=== PATIENT | male | born 1980 | race Caucasian/White ===

== ENCOUNTER → 2021-12-09 16:44 | Outpatient (CLI) | payer OTHER, SELFPAY ==
--- NOTE | 2021-12-09 16:48 | DI.MRI.S_ITS ---
PROCEDURE: MR ABDOMEN WO/W CON INDICATIONS: RIGHT UPPER QUADRANT PAIN TECHNIQUE: Coronal HASTE, axial 2D FLASH in- and [id number]; axial breath-hold T2 FSE. Dynamic axial VIBE during the administration of contrast; post-contrast coronal VIBE or 2D FLASH with fat saturation from the hepatic dome to the iliac crests. Optional diffusion weighted imaging and ADC may be performed. COMPARISON: None. FINDINGS: Image quality: Degraded by motion Lung bases: No basal effusion. Lungs are not well evaluated on MRI. No hiatal hernia. Solid organs: The liver is unremarkable. Gallbladder is unremarkable. No biliary ductal dilation. Pancreas is unremarkable. Spleen is normal size. No adrenal nodule. No hydronephrosis. Nodes and vessels: No adenopathy by size criteria. No abdominal aortic aneurysm. The portal vein is patent. Bowel and peritoneum: No bowel obstruction no pathologic ascites. Bones and soft tissues: A marker is seen overlying the ventral right upper quadrant, without notable soft tissue abnormality. No acute or suspicious osseous finding. IMPRESSION: No acute abdominal pelvic pathology. No biliary ductal dilation or cholelithiasis. No abnormality by imaging underlying the marker in the right upper quadrant ventral wall. If there is concern for right upper quadrant gallbladder/biliary pathology in the absence of gallstones, consider nuclear medicine HIDA scan to evaluate gallbladder ejection fraction. Dictated by: Jones Lacy M.D. on 12/10/2021 at 9:15 Approved by: Jones Lacy M.D. on 12/10/2021 at 9:19
== END ==
DX: R10.11 Right upper quadrant pain (principal)
CPT/HCPCS: 74183; A9579